=== PATIENT | male | born 1985 | race Caucasian/White ===

== ENCOUNTER 2020-03-25 17:48 | Emergency (ER) | payer BC ==
[2020-03-25 18:01] VITALS: BP 128/77; PULSE 69; TEMP 98.2; BMI 33.7
[2020-03-25] MEDS ORDERED: NAPROXEN 500 MG TABLET PO ONE (18:12)
--- OUTSIDE RECORDS SUMMARY | 2020-03-25 18:12 | XMS ---
:1985 Author Organization [facility] Support Name Relationship Address Phone US MILTARY Unavailable [address] [place] [address] GIL MUNOZ [address] [place] [address] Re-disclosure Warning The records that you are about to access may contain information from federally- assisted alcohol or drug abuse programs. If such information is present, then the following federally mandated warning applies: This information has been disclosed to you from records protected by federal confidentiality rules (42 CFR part 2). The federal rules prohibit you from making any further disclosure of this information unless further disclosure is expressly permitted by the written consent of the person to whom it pertains or as otherwise permitted by 42 CFR part 2. A general authorization for the release of medical or other information is NOT sufficient for this purpose. The Federal rules restrict any use of the information to criminally investigate or prosecute any alcohol or drug abuse patient.The records that you are about to access may contain highly sensitive health information, the redisclosure of which is protected by Article 27-F of the [facility] Public Health law. If you continue you may haveaccess to information: Regarding HIV / AIDS; Provided by facilities licensed or operated by the [facility] Office of Mental Health; or Provided by the [facility] Office for People With Developmental Disabilities. If such information is present, then the following [facility] mandated warning applies: This information has been disclosed to you from confidential records which are protected by state law. State law prohibits you from making any further disclosure of this information without the specific written consent of the person to whom it pertains, or as otherwise permitted by law. Any unauthorized further disclosure in violation of state law may result in a fine or assisted sentence or both. A general authorization for the release of medical or other information is NOT sufficient authorization for further disclosure. Encounters Encounter Providers Location Date Indications Data Source(s ) Outpatient 03/24/2019 08:40:00 [facility]) Outpatient 03/23/2019 09:00:00 [facility]) Outpatient 09/02/2018 10:08:00 [facility] ([facility]) Outpatient 09/01/2018 09:54:00 [facility] ([facility]) Insurance Providers Payer name Policy type / Policy ID Covered Covered libertarian's Policy Plan Coverage type libertarian ID relationship to Means Information means BC PPO [id number] SP [id number] Results ID Date Data Source [id number] 09/21/2019 12:00:00 AM EDT [facility] Name Value Range Interpretation Code Description Data Sallie rce(s) Supporting Document(s ) 2019-nCoV [facility] RNA XXX GUILLERMO+probe- Imp This lab was ordered by [facility] a nd reported by [employer] Procedure
[2020-03-25] MEDS ORDERED: NAPROXEN 500 MG TABLET ONE (18:21)
--- NOTE | 2020-03-25 18:53 | PDOC ---
History of Present Illness - General Chief Complaint: Pain Stated Complaint: BACK PAIN INJURY PLAYING [employer] football today Time Seen by Provider: 03/25/20 17:58 History Source: Patient Exam Limitations: No Limitations - History of Present Illness Initial Comments: 03/25/20 18:48 CHIEF COMPLAINT: Football injury earlier this afternoon HISTORY OF PRESENT ILLNESS: 34-year-old man with no past medical history presents complaining of midthoracic back pain and anterior chest pain. He states he performed a block in football and hit his anterior chest. He immediately had pain in that area which radiated to the back. The pain increases when he takes a deep breath. He denies shortness of breath. He denies dizziness. He denies loss of consciousness. He also states that his left ring finger was injured 1 month ago and is deformed at the PIP joint. He asked me to look at that area. REVIEW OF SYSTEMS: No head injuries No loss of consciousness No neck pain, but back pain gets worse with neck flexion Positive mid thoracic back pain in the midline over the spine, worse with flexion of the neck or with deep breath Positive lower sternal chest pain associated with mid thoracic back pain, also worse with deep breath. No numbness, tingling, or weakness in the arms or legs Past History - Medical History Allergies/Adverse Reactions: Allergies Allergy/AdvReac Type Severity Reaction Status Date / Time No Known Allergies Allergy Unverified 03/25/20 17:50 Home Medications: Ambulatory Orders Naproxen 500 mg PO BID PRN 10 Days #20 tablet 03/25/20 Asthma: No COPD: No Diabetes: No HTN: No Other medical history: denies - Psycho-Social/Smoking History Smoking History: Never smoked - Substance Abuse Hx (Audit-C & DAST Scrn) How often the patient has a drink containing alcohol: 2-4 times / month Number of drinks the patient has on a typical day: 3 or 4 Score: In Men: 4 or > Positive; In Women: 3 or > Positive: 3 Screen Result (Pos requires Nsg. Audit-10AR): Negative In the last yr the pt used illegal drug/Rx for NonMed reason: No Score: Yes response is considered Positive: 0 Screen Result (Positive result requires Nsg. DAST-10): Negative *Physical Exam - Vital Signs Last Vital Signs Temp Pulse Resp BP Pulse Ox 98.2 F 69 16 128/77 100 03/25/20 17:49 03/25/20 17:49 03/25/20 17:49 03/25/20 17:49 03/25/20 17:49 - Physical Exam 03/25/20 18:51 GENERAL: The patient is awake, alert, and fully oriented, in no acute distress. He is ambulatory, but appears to be splinting his back when turning. HEAD: Normal with no signs of trauma. EYES: Pupils equal, round and reactive to light, extraocular movements intact, sclera anicteric, conjunctiva clear. ENT: Ears normal, nares patent, oropharynx clear without exudates. Moist mucous membranes. NECK: Normal range of motion, supple without lymphadenopathy, JVD, or masses. Upon extreme neck flexion, he states the pain in the mid thoracic region gets worse. There is no bony spine tenderness in the cervical spine. LUNGS: Breath sounds equal, clear to auscultation bilaterally. No wheezes, and no crackles. No rib cage tenderness. Sternum is nontender. HEART: Regular rate and rhythm, normal S1 and S2 without murmur, rub or gallop. BACK: There is no point tenderness over the thoracic spine. Upon palpation, patient states it feels like a massage and the pain gets better. ABDOMEN: Soft, nontender, normoactive bowel sounds. No guarding, no rebound. No masses. EXTREMITIES: Normal range of motion, no edema. No clubbing or cyanosis. No cords, erythema, or tenderness. The left fourth finger has thickening and mild sustained flexion at the PIP joint with inability to straighten fully. The skin is intact. These findings appear consistent with the stated old injury from 1 month ago. NEUROLOGICAL: Cranial nerves II through XII grossly intact. Normal speech, normal gait. Motor strength is normal in all extremities. Sensation is intact in all extremities. PSYCH: Normal mood, normal affect. SKIN: Warm, Dry, normal turgor, no rashes or lesions noted. No ecchymosis of the chest or back. No swelling. ED Treatment Course - RADIOLOGY Radiology Studies Ordered: Category Date Time Status CHEST PA & LAT [RAD] Stat Radiology 03/25/20 18:12 Taken FINGER(S) LEFT [RAD] Stat Radiology 03/25/20 18:13 Taken - Medications Given in the ED: ED Medications Discontinued Medications Generic Name Dose Route Start Last Admin Trade Name Freq PRN Reason Stop Dose Admin Naproxen 500 mg 03/25/20 18:12 03/25/20 18:21 Naprosyn - PO 03/25/20 18:13 500 mg ONCE ONE Administration Medical Decision Making - Medical Decision Making 03/25/20 18:52 34-year-old man got hit hard in the chest region well blocking in football today. He currently has some midsternal chest pain, worse with deep breath, and midthoracic back pain in the midline over the spine area. On examination there is no tenderness to palpation. Patient likely has musculoskeletal injury. Chest x-ray ordered. Patient also has an old injury, approximately 1 month old of the left ring finger. X-ray ordered. He likely has a healing injury at the proximal inter- phalangeal joint. Skin is closed. Range of motion is mildly decreased secondary to this 1 month old injury. 03/25/20 19:26 Chest x-ray PA and lateral is normal on my preliminary review. The left fourth finger shows no acute fracture, but the joint is in mild flexion. Impression: Musculoskeletal injury with pain. No pneumothorax. No neurological deficits. Patient will be treated with Naprosyn twice a day and follow-up with primary physician this coming week. Discharge - Discharge Information Problems reviewed: Yes Clinical Impression/Diagnosis: Musculoskeletal pain Condition: Stable Disposition: HOME - Admission No - Additional Discharge Information Prescriptions: Naproxen 500 mg PO BID PRN 10 Days #20 tablet PRN Reason: Pain - Follow up/Referral Referrals: Urbano Yanes MD [Staff Physician] - 3 days - Patient Discharge Instructions Additional Instructions: You were evaluated today for back pain and chest pain after a football injury. The chest x-ray shows no lung or bony injury. You likely have a soft tissue injury causing pain. Rest at home, apply ice packs for 24 hours as needed to reduce pain. Take Naprosyn 500 mg twice a day as needed for pain. Follow-up with your primary care doctor or with Dr. Laguna later this week if the symptoms have not improved. Return to the emergency department for any severe or progressive symptoms. - Post Discharge Activity
== END 2020-03-25 19:55 | disposition home or self-care (01) ==
LOC: FER 17:48
DX: M79.10 Myalgia, unspecified site (principal)
CPT/HCPCS: 71046-TC-FY; 73140-TC-LT-FY; 99284-25